=== PATIENT | male | born 1965 | race African-American/Black ===

== ENCOUNTER 2023-08-09 13:08 | Inpatient (IN) | payer OTHER, SELFPAY ==
[2023-08-09] MEDS ORDERED: Iopamidol 370 76% 100 ML VIAL ONE (14:05)
[2023-08-09 14:11] LABS: #Basophils 0.1 10x3/uL (0.0-0.2); #Monocytes 2.2 10x3/uL (0.0-1.1); #Neutrophils 16.2 10x3/uL (1.5-8.4); %Basophils 0.3 % (0.0-2.0); %Eosinophils 0.1 % (0.0-6.0); %Lymphocytes 7.9 % (18.0-47.0); %Monocytes 10.9 % (0.0-10.0); %Neutrophils 80.2 % (40.0-75.0); Hematocrit 35.2 % (38.8-50.0); Hemoglobin 11.7 g/dL (13.5-17.5); Mean Corpuscular HGB CONC 33.2 g/dL (32.0-36.0); Mean Corpuscular Hemoglobin 28.9 pg (27.0-33.0); Mean Corpuscular Volume 86.9 fl (81.2-95.1); Mean Platelet Volume 9.8 fl (7.4-10.4); Platelet Count 339 10x3/uL (150-450); RBC Distribution Width 15.5 % (11.5-14.5); Red Blood Cell (RBC) Count 4.05 10x6/uL (4.32-5.72); White Blood Cell (WBC) Count 20.3 10x3/uL (3.5-10.5)
[2023-08-09 14:29] LABS: ALT (SGPT) 63 U/L (8-55); AST (SGOT) 136 U/L (5-34); Albumin 3.3 g/dL (3.5-5.0); Alkaline Phosphatase 207 U/L (40-110); Anion Gap 18 mmol/L (10-20); BUN (Urea Nitrogen) 13 mg/dL (8.4-25.7); Bilirubin, Total 1.8 mg/dL (0.2-1.2); Calc. Creatinine Clearance 0 mL/min (70-130); Calcium 8.9 mg/dL (7.8-10.44); Carbon Dioxide 18 mmol/L (22-29); Chloride 102 mmol/L (98-107); Estimated GFR 101; Globulin 4.4 g/dL (2.4-3.5); Glucose 147 mg/dL (70-105); Potassium 4.5 mmol/L (3.5-5.1); Protein, Total 7.7 g/dL (6.0-8.3); Sodium 133 mmol/L (136-145)
[2023-08-09] MEDS ORDERED: Morphine 4 MG/ML VIAL ONE (14:29)
[2023-08-09 15:23] LABS: SARS-CoV-2 NAA Rapid Test Not Detected (NotDetected)
[2023-08-09] MEDS ORDERED: Acetaminophen 325 MG TAB PO PRN (16:27)
[2023-08-09] MEDS: Sodium Chloride 0.9% 1,000 ML IV SCH (19:28)
[2023-08-09 20:48] LABS: Critical Call Chem-Lactate NUR.JW12 @ 2048; Lactic Acid 4.2 mmol/L (0.5-2.2)
[2023-08-09] MEDS ORDERED: Piperacillin/Tazobactam 4.5 GM in Sodium Chloride 0.9% 100 ML IVPB SCH (21:15)
[2023-08-09] MEDS: Piperacillin/Tazobactam 3.375 GM in Sodium Chloride 0.9% 100 ML IVPB SCH (21:23)
[2023-08-09] MEDS: traMADol HCl 50 MG TAB PO PRN (22:31)
[2023-08-10] MEDS: Piperacillin/Tazobactam 3.375 GM in Sodium Chloride 0.9% 100 ML IVPB SCH (01:15)
[2023-08-10 04:26] LABS: #Basophils 0.1 10x3/uL (0.0-0.2); #Eosinphils 0.1 10x3/uL (0.0-0.5); #Monocytes 2.6 10x3/uL (0.0-1.1); #Neutrophils 12.8 10x3/uL (1.5-8.4); %Basophils 0.5 % (0.0-2.0); %Eosinophils 0.5 % (0.0-6.0); %Lymphocytes 9.5 % (18.0-47.0); %Monocytes 14.7 % (0.0-10.0); %Neutrophils 74.2 % (40.0-75.0); Hematocrit 27.9 % (38.8-50.0); Hemoglobin 9.6 g/dL (13.5-17.5); Mean Corpuscular HGB CONC 34.4 g/dL (32.0-36.0); Mean Corpuscular Hemoglobin 29.6 pg (27.0-33.0); Mean Corpuscular Volume 86.1 fl (81.2-95.1); Mean Platelet Volume 9.4 fl (7.4-10.4); Platelet Count 300 10x3/uL (150-450); RBC Distribution Width 15.3 % (11.5-14.5); Red Blood Cell (RBC) Count 3.24 10x6/uL (4.32-5.72); White Blood Cell (WBC) Count 17.3 10x3/uL (3.5-10.5)
[2023-08-10 04:29] LABS: Lactic Acid 3.2 mmol/L (0.5-2.2)
[2023-08-10 04:33] LABS: ALT (SGPT) 45 U/L (8-55); AST (SGOT) 100 U/L (5-34); Albumin 2.9 g/dL (3.5-5.0); Alkaline Phosphatase 175 U/L (40-110); Anion Gap 15 mmol/L (10-20); BUN (Urea Nitrogen) 12 mg/dL (8.4-25.7); Bilirubin, Total 1.6 mg/dL (0.2-1.2); Calc. Creatinine Clearance 131 mL/min (70-130); Calcium 8.1 mg/dL (7.8-10.44); Carbon Dioxide 17 mmol/L (22-29); Chloride 106 mmol/L (98-107); Estimated GFR 103; Globulin 3.5 g/dL (2.4-3.5); Glucose 87 mg/dL (70-105); Potassium 4.2 mmol/L (3.5-5.1); Protein, Total 6.4 g/dL (6.0-8.3); Sodium 134 mmol/L (136-145)
[2023-08-10] MEDS: Pantoprazole 40 MG VIAL IVP SCH (08:59)
[2023-08-10] MEDS: Enoxaparin 40 MG (0.4 mL) SYRINGE SC SCH (08:59)
[2023-08-10 10:34] LABS: INR-International Normal Ratio 1.3; Prothrombin Time 13.9 sec (9.5-12.1)
[2023-08-10 10:40] LABS: Iron 14 ug/dL (65-175); Iron Binding Capacity, Total 170 mcg/dL (261-462)
[2023-08-10 10:57] LABS: HBSAg Index 0.21 S/CO (0-0.99); Hep B Surf Ag Non-Reactive S/CO (NonReactive)
[2023-08-10 10:59] LABS: Bilirubin Neg (Negative); Blood, Urine Negative (Negative); Clarity Cloudy (Clear); Glucose, Urine (Dipstick) Normal (Negative); Ketone, Urine Negative (Negative); Leukocyte 25 (Negative); Nitrite Negative (Negative); Protein, Urine (Dipstick) 30 mg/dl (Neg-Trace)
[2023-08-10 11:14] LABS: RBC/HPF 0-3 HPF (0-3); Squamous Epithelial 0-3 HPF (0-3)
[2023-08-10 11:15] LABS: Bacteria/HPF 4+ HPF (None Seen)
[2023-08-10 11:38] LABS: Ferritin 1902.03 ng/mL (22-322)
[2023-08-10 14:27] LABS: HIV (1/2) Antibody/Antigen Non-Reactive (NonReactive); HIV 1/2 INDEX 0.12 S/CO (<1.00)
[2023-08-10 14:30] LABS: Syphilis Antibody Index 11.26 S/CO (<1.00 Non-Reactive)
[2023-08-10 15:38] LABS: Hep C IgG Ab Non-Reactive S/CO (NonReactive); Hep C Index 0.13 S/CO (0-0.79)
[2023-08-10 15:39] LABS: HBSAB Concentration 167.54 mIU/mL; Hep B Surf AB Reactive (NonReactive)
[2023-08-10] MEDS: GoLYTELY 4,000 ml Bottle PO SCH (16:22)
[2023-08-10 17:25] LABS: Syphilis Antibody INDETERMINATE (Nonreactive); Syphilis Titer Non-Reactive Titer (Negative)
[2023-08-11 06:11] VITALS: TEMP 98.4
[2023-08-11 09:47] VITALS: BMI 24.8
[2023-08-11] MEDS ORDERED: PROPOFOL 20 ML ONE ×2 (10:18→10:24)
[2023-08-11] MEDS ORDERED: Lidocaine 1% PF 5 ML VIAL ONE (10:18)
[2023-08-11 15:33] VITALS: BP 154/100
[2023-08-12] MEDS ORDERED: Enoxaparin 40 MG (0.4 mL) SYRINGE SC SCH (09:00)
[2023-08-13 07:26] LABS: QuantiFERON-TB Gold Plus Negative (Negative)
== END 2023-08-11 18:05 | disposition home or self-care (01) | DRG 375 ==
LOC: CSHERS 13:08 → EEVIPCON 16:02 → CSHTELE 16:02 → OBSVTOIN 08-10 13:16
PROVIDERS: ADMIT Internal Medicine; ATTEND Internal Medicine
PROC: 0DBN8ZX Excision of Sigmoid Colon, Via Natural or Artificial Opening Endoscopic, Diagnostic (ICD-10-PCS; principal; 2023-08-11)
PROC: 0DJ08ZZ Inspection of Upper Intestinal Tract, Via Natural or Artificial Opening Endoscopic (ICD-10-PCS; 2023-08-11)
DX: C18.7 Malignant neoplasm of sigmoid colon (principal); C78.00 Secondary malignant neoplasm of unspecified lung; C78.7 Secondary malignant neoplasm of liver and intrahepatic bile duct; E87.20 Acidosis, unspecified; R65.10 Systemic inflammatory response syndrome (SIRS) of non-infectious origin without acute organ dysfunction; K64.8 Other hemorrhoids; D64.9 Anemia, unspecified; Z79.01 Long term (current) use of anticoagulants; Z79.899 Other long term (current) drug therapy; Z86.711 Personal history of pulmonary embolism; Z87.891 Personal history of nicotine dependence; Z11.52 Encounter for screening for COVID-19
CPT/HCPCS: 36415; 71045; 71275; 74176; 80053; 81001; 82378; 82728; 83540; 83550; 83605; 84145; 85025; 85610; 86480; 86593; 86706; 86708; 86780; 86803; 87040; 87340; 87389; 88305; 93005; 96361; 96372; 96374; 96375; 96376; A4215; C9113; G0378; J1650; J2270; J2543; J2704; J3490; J7050; Q9967

== ENCOUNTER 2023-09-12 04:46 | Emergency (ER) | payer OTHER ==
[2023-09-12 06:14] LABS: #Monocytes 0.4 10x3/uL (0.0-1.1); #Neutrophils 5.6 10x3/uL (1.5-8.4); %Basophils 0.3 % (0.0-2.0); %Eosinophils 0.5 % (0.0-6.0); %Lymphocytes 18.5 % (18.0-47.0); %Monocytes 4.9 % (0.0-10.0); %Neutrophils 75.4 % (40.0-75.0); Hematocrit 36.3 % (38.8-50.0); Mean Corpuscular HGB CONC 33.1 g/dL (32.0-36.0); Mean Corpuscular Hemoglobin 28.4 pg (27.0-33.0); Mean Platelet Volume 9.9 fl (7.4-10.4); Platelet Count 590 10x3/uL (150-450); RBC Distribution Width 17.5 % (11.5-14.5); Red Blood Cell (RBC) Count 4.22 10x6/uL (4.32-5.72); White Blood Cell (WBC) Count 7.4 10x3/uL (3.5-10.5)
[2023-09-12 06:15] LABS: ALT (SGPT) 47 U/L (8-55); AST (SGOT) 74 U/L (5-34); Alkaline Phosphatase 339 U/L (40-110); Anion Gap 23 mmol/L (10-20); BUN (Urea Nitrogen) 12 mg/dL (8.4-25.7); Bilirubin, Total 0.9 mg/dL (0.2-1.2); Calc. Creatinine Clearance 0 mL/min (70-130); Calcium 8.7 mg/dL (7.8-10.44); Carbon Dioxide 14 mmol/L (22-29); Chloride 106 mmol/L (98-107); Estimated GFR 104; Globulin 3.9 g/dL (2.4-3.5); Glucose 146 mg/dL (70-105); Potassium 3.8 mmol/L (3.5-5.1); Protein, Total 6.9 g/dL (6.0-8.3); Sodium 139 mmol/L (136-145)
[2023-09-12] MEDS ORDERED: Piperacillin/Tazobactam 4.5 GM VIAL ONE (06:20)
[2023-09-12] MEDS ORDERED: Morphine 4 MG/ML VIAL ONE (06:20)
[2023-09-12] MEDS ORDERED: VANCOMYCIN 2 GRAM/400 ML BAG 2 GM in Premix 1 BAG IVPB SCH (06:30)
[2023-09-12 07:45] LABS: Influenza A by NAA Not Detected (NotDetected); Influenza B by NAA Not Detected (NotDetected); SARS-CoV-2 NAA Rapid Test Not Detected (NotDetected)
[2023-09-12 08:07] LABS: Platelet Adequacy Comment Appears Increased; Platelet Clumps SLIGHT
[2023-09-12 09:21] LABS: Lactic Acid 6.3 mmol/L (0.5-2.2)
[2023-09-12] MEDS ORDERED: Iopamidol 300 61% 100 ML VIAL FS ONE (14:38)
== END 2023-09-12 10:30 | disposition home or self-care (01) ==
LOC: CSHERS 04:46
DX: A41.9 Sepsis, unspecified organism (principal); K52.9 Noninfective gastroenteritis and colitis, unspecified; C18.9 Malignant neoplasm of colon, unspecified
CPT/HCPCS: 36415; 71045; 74177; 80053; 83605; 84145; 85025; 87040; 87149; 93005; 96365; 96366; 96367; 96375; J2270; J2543; J3370

== ENCOUNTER 2023-09-26 05:42 | Day surgery (SDC) | payer OTHER ==
[2023-09-23 10:52] VITALS: BMI 26.0
[2023-09-26] MEDS ORDERED: Bupivacaine PF 0.5% 30 ML VIAL ONE (06:42)
[2023-09-26] MEDS ORDERED: EPINEPHrine 1 MG/ML VIAL ONE (06:42)
[2023-09-26] MEDS ORDERED: CEFAZOLIN 2 GM VIAL ONE (06:53)
[2023-09-26] MEDS ORDERED: PROPOFOL 20 ML ONE (07:02)
[2023-09-26] MEDS ORDERED: Ketorolac Tromethamine 30 MG (1 mL) VIAL ONE (07:02)
[2023-09-26] MEDS ORDERED: Ondansetron PF 4 MG/2 ML Vial ONE (07:02)
[2023-09-26] MEDS ORDERED: Midazolam HCl 2 mg/2 ml Vial ONE (07:02)
[2023-09-26] MEDS ORDERED: fentaNYL 50 mcg/mL 1 mL Vial ONE (07:02)
[2023-09-26] MEDS ORDERED: Dexamethasone 4 mg/ml Vial ONE (07:02)
[2023-09-26] MEDS ORDERED: Lidocaine 1% PF 5 ML VIAL ONE (07:02)
[2023-09-26] MEDS ORDERED: HYDROcodone/Acetaminophen 5/325 mg Tablet PO PRN (07:43)
[2023-09-26] MEDS ORDERED: Acetaminophen 325 MG TAB PO PRN (07:43)
== END 2023-09-26 08:35 | disposition home or self-care (01) ==
LOC: CSHSDC 05:42
PROVIDERS: ATTEND Surgery
PROC: 0JH60WZ Insertion of Totally Implantable Vascular Access Device into Chest Subcutaneous Tissue and Fascia, Open Approach (ICD-10-PCS; principal; 2023-09-26)
DX: C18.9 Malignant neoplasm of colon, unspecified (principal); E11.9 Type 2 diabetes mellitus without complications; Z86.711 Personal history of pulmonary embolism
CPT/HCPCS: 71045; A6258; C1788; J0171; J0665; J1100; J1642; J1885; J2250; J2405; J2704; J3010